=== PATIENT | female | born 1975 | race Hispanic/Latino ===

== ENCOUNTER → 2018-11-11 | Outpatient (CLI) | payer BC | END | disposition home or self-care (01) | LOC: RAH 08:40 | PROVIDERS: ATTEND Otolaryngology Plastic Surgery within the Head & Neck | DX: K21.9 Gastro-esophageal reflux disease without esophagitis (principal) | CPT/HCPCS: 74220 ==

== ENCOUNTER → 2023-06-12 | Outpatient (CLI) | payer BC | END | disposition home or self-care (01) | LOC: SHCH 12:55 | PROVIDERS: ATTEND Internal Medicine Cardiovascular Disease | DX: I42.2 Other hypertrophic cardiomyopathy (principal) | CPT/HCPCS: 93306 ==

== ENCOUNTER 2024-05-15 18:14 | Emergency (ER) | payer BC ==
[~2024-05-15] VITALS: Ht 170.2 cm; Wt 56.2 kg
--- NOTE | 2024-05-15 18:54 | ERN ---
General Chief Complaint: Palpitations Stated Complaint: PALPITATIONS Time Seen by MD: 19:06 Source: patient History of Present Illness Initial Comments PATIENT IS A 49-YEAR-OLD FEMALE COMING IN TO BE EVALUATED FOR PALPITATIONS. PER PATIENT SHE WAS IN THE GYM EXERCISING STARTED HAVING CHEST PRESSURE DECIDED TO COME IN FOR FURTHER EVALUATION. PATIENT STATES HE DOES NOT TAKE ANY FEW WORKUPS AND ALL SHE DRANK WAS GATORADE. Past Medical History Past Medical History: Other Medical History Other: OSTEOPOROSIS Past Surgical History: Hysterectomy ROS Dictation CONSTITUTIONAL: NO CHILLS, NO FEVER, NO WEAKNESS, NO DIAPHORESIS, NO MALAISE. HEAD/FACE: NO SIGNS OF TRAUMA. EENT: NO EYE PAIN, NO BLURRED VISION, NO TEARING, NO DOUBLE VISION, NO EAR PAIN, NO EAR DISCHARGE, NO NOSE PAIN, NO NASAL CONGESTION, NO THROAT PAIN, NO THROAT SWELLING, NO MOUTH PAIN. RESPIRATORY: NO COUGH, NO ORTHOPNEA, NO SOB, NO STRIDOR, NO WHEEZING. CARDIOVASCULAR: NO CHEST PAIN, NO EDEMA, NO PALPITATIONS, NO SYNCOPE. GASTROINTESTINAL/ABDOMINAL: NO ABDOMINAL PAIN, NO CONSTIPATION, NO DIARRHEA, NO NAUSEA, NO VOMITING. GENITOURINARY: NO ABNORMAL DISCHARGE, NO DYSURIA, NO FREQUENT URINATION, NO HEMATURIA. NO COMPLAINTS OF PAIN IN THE GENITALS. MUSCULOSKELETAL: NO BACK PAIN, NO GOUT, NO JOINT PAIN, NO JOINT SWELLING, NO MUSCLE PAIN, NO MUSCLE STIFFNESS, NO NECK PAIN. INTEGUMENTARY: NO CHANGE IN COLOR, NO CHANGE IN HAIR/NAILS, NO DRYNESS, NO LESION, NO LUMPS, NO RASH. NEUROLOGICAL/PSYCH: NO ANXIETY, NOT DEPRESSED, NO EMOTIONAL PROBLEM, NO HEADACHE, NO NUMBNESS, NO PRE-EXISTING DEFICIT, NO HISTORY OF SEIZURES, NO TREMORS, NO WEAKNESS. HEMATOLOGIC/LYMPHATIC: NOT ANEMIC, NO HISTORY OF BLOOD CLOTS, NO APPARENT BLEEDING, NO BRUISING, GLANDS NOT SWOLLEN. ALL SYSTEMS NEGATIVE, EXCEPT NOTED. Physical Exam Physical Exam Dictation VITAL SIGNS: REVIEWED. GENERAL APPEARANCE: ALERT, ORIENTED X3, NO ACUTE DISTRESS, OBESE. HEAD AND FACE: NON-TRAUMATIC. EYES: PERRL, PINK CONJUNCTIVAS, EYELID NO TRAUMA, ANTERIOR CHAMBER CLEAR. EARS: PINNAS INTACT AND NO SIGNS OF TRAUMA OR ERYTHEMA. EAR CANALS CLEAR AND NO DISCHARGE. TMS NO ERYTHEMA. NOSE: NO DISCHARGE, NO BLEEDING. OROPHARYNX: MOUTH NORMAL, TEETH NO CARIES, TONGUE PINK. PHARYNX CLEAR, NO ERYTHEMA. TONSILS NO EXUDATES, NO ABSCESSES NOTED. MUCOUS MEMBRANE MOIST. NECK: SUPPLE, NON-TENDER, NO THYROMEGALY, NO MASSES, NO JVD, NO BRUITS. BREAST: DEFERRED. CHEST: NO TENDERNESS, NO CREPITUS, NO PARADOXICAL MOVEMENT, NO RETRACTIONS. LUNGS: CLEAR, WELL-VENTILATED, SYMMETRIC, NO RALES, NO WHEEZING, NO RHONCHI, NO STRIDOR, GOOD BREATH SOUNDS BILATERALLY. HEART: REGULAR RATE, REGULAR RHYTHM, NO MURMUR, NO GALLOPS. VASCULAR: NO PERIPHERAL EDEMA. ABDOMEN: SOFT, POSITIVE BOWEL SOUNDS, NONDISTENDED, NO GUARDING, NONTENDER, NO REBOUND, NO MASSES NO HEPATOMEGALY, NO SPLENOMEGALY, NO CARSON'S SIGN, NO HERNIAS. RECTAL: DEFERRED. GENITAL: DEFERRED. NEUROLOGICAL: NORMAL SPEECH, GROSS MOTOR FUNCTION INTACT, GROSS SENSORY FUNCTION INTACT. MUSCULOSKELETAL: NECK NONTENDER, FULL RANGE OF MOTION, BACK NONTENDER, FULL RANGE OF MOTION. EXTREMITIES: NONTENDER, FULL RANGE OF MOTION. SKIN: COLOR PINK, DRY, NO TURGOR, NO RASH, NO LACERATIONS, NO ABRASIONS, NO CONTUSIONS. LYMPHATICS: DEFERRED. Results Laboratory and Microbiology Lab and Micro Result Laboratory Tests Test 05/15/24 19:52 White Blood Count 8.7 K/uL (4.8-10.8) Red Blood Count 3.88 MIL/uL (4.00-5.50) L Hemoglobin 12.6 g/dL (12.0-16.0) Hematocrit 37.8 % (36-48) Mean Corpuscular Volume 97.4 fL (79-99) Mean Corpuscular Hemoglobin 32.5 pg (27.0-33.0) Mean Corpuscular Hemoglobin Concent 33.3 g/dL (32.0-36.0) Red Cell Distribution Width 13.3 % (11.0-15.5) Platelet Count 232 K/uL (130-400) Mean Platelet Volume 12.0 fL (7.5-10.5) H Immature Granulocyte % (Auto) 0.2 % (0-1) Neutrophils (%) (Auto) 77.1 % (40.0-77.0) H Lymphocytes (%) (Auto) 16.4 % (21.0-51.0) L Monocytes (%) (Auto) 5.7 % (3.0-13.0) Eosinophils (%) (Auto) 0.1 % (0.0-8.0) Basophils (%) (Auto) 0.5 % (0.0-5.0) Neutrophils # (Auto) 6.7 K/uL (1.8-7.7) Lymphocytes # (Auto) 1.4 K/uL (1.0-4.8) Monocytes # (Auto) 0.5 K/uL (0.1-1.0) Eosinophils # (Auto) 0.01 K/uL (0.00-0.70) Basophils # (Auto) 0.04 K/uL (0.00-0.20) Absolute Immature Granulocyte (auto 0.02 K/uL (0-1) Nucleated Red Blood Cells 0.0 % (0.0-0.19) Prothrombin Time 11.0 SEC (9.6-11.6) Prothromb Time International Ratio 0.98 (0.85-1.15) Activated Partial Thromboplast Time 29.5 SEC (26.3-35.5) Sodium Level 141 mmol/L (136-145) Potassium Level 3.7 mmol/L (3.5-5.1) Chloride Level 102 mmol/L (101-111) Carbon Dioxide Level 31 mmol/L (21-32) Blood Urea Nitrogen 17 mg/dL (7-18) Creatinine 0.7 mg/dL (0.5-1.0) Glomerular Filtration Rate Calc 107 mL/min (>90) Random Glucose 103 mg/dL (70-105) Total Calcium 9.8 mg/dL (8.5-10.1) Magnesium Level 1.90 mg/dL (1.80-2.40) Total Creatine Kinase 89 U/L (21-232) Troponin I High Sensitivity 19 ng/L (4-50) Labs Reviewed?: Yes EKG/XRAY/US/CT/MRI EKG Comment 05/15/2024 TIME 6:30 P.M. VENTRICULAR RATE [address] WAVE ELEVATION OR DEPRESSION MDM MDM: DIFFERENTIAL DIAGNOSIS: RATIONALE: TESTS CONSIDERED AND ORDERED SECONDARY TO SHARED DECISION MAKING INCLUDE: PREVIOUS OUTSIDE RECORDS REVIEWED: OLD ER VISITS. RISK OF COMPLICATION AND/OR MORBIDITY OR MORTALITY OF PATIENT MANAGEMENT: NONE MEDICATIONS-PER MEDICATION RECONCILIATION NEED FOR HOSPITALIZATION: PATIENT DOES NOT MEET CRITERIA FOR HOSPITALIZATION. NEED FOR EMERGENCY MAJOR/MINOR SURGERY: NO THERE ARE NO SOCIAL CONCERNS WITH THIS PATIENT. PRESCRIPTION DRUG MANAGEMENT PRESCRIPTIONS WILL INCLUDE SYMPTOMATIC CARE PATIENT'S PRIOR EXTERNAL MEDICAL RECORDS FROM OTHER ER VISITS WERE REVIEWED BY ME INDICATED. PRIOR TESTING AND RESULTS FROM PREVIOUS VISITS WERE REVIEWED. PRIOR TESTS WERE TAKEN INTO ACCOUNT WITH MEDICAL DECISION MAKING AND RESOURCE UTILIZATION, INDEPENDENT HISTORIAN/HISTORIANS WERE USED TO OBTAIN COMPLETE MEDICAL HISTORY. I INDEPENDENTLY INTERPRETED THE TEST THAT WERE PERFORMED, RESULTS WERE REVIEWED BY ME AND CONSIDERED FINDINGS ON RADIOLOGY IF ORDERED. MEDICAL MANAGEMENT AND EXAMINATION INTERPRETATION DISCUSSIONS WERE HAD BY ME WITH OTHER QUALIFIED HEALTHCARE PROFESSIONALS INDICATED FOR THE PATIENT'S CARE. ED Course Orders Procedure Category Date Status Time Cbc With Differential LAB 05/15/24 In Process 18:39 Prothrombin Time With LAB 05/15/24 Complete INR 18:39 B-Type Natriuretic LAB 05/15/24 In Process Peptide 18:39 Chest 1vw RAD 05/15/24 Resulted 18:39 12 Lead Ekg Tracing- EKG 05/15/24 Logged Technical 18:39 Magnesium LAB 05/15/24 Complete 18:39 Creatine Kinase, Total LAB 05/15/24 Complete 18:39 Troponin I High LAB 05/15/24 Complete Sensitivity 18:39 Urinalysis Profile LAB 05/15/24 In Process 18:39 Partial LAB 05/15/24 Complete Thromboplastin Time 18:39 Basic Metabolic Panel LAB 05/15/24 Complete 18:39 Vital Signs Date Time Temp Pulse Resp B/P (MAP) Pulse Ox O2 Delivery O2 Flow Rate FiO2 05/15/24 18:33 97.9 77 20 131/71 99 Room Air 0 7:00 p.m. patient was signed out to me by a.m. physician. Ms. Espinoza is a 49-year-old pleasant female who came into the ER complaining of palpitations and dizziness after 1 hour of workout. Apparently she did not do any pre workout or take supplements. She had a similar presentation in the past where an echocardiogram was done which was negative she has not been working out for awhile and just started the exercise back. She denied any syncope chest pain. Palpitations resolved after she came to the ER No history of any known thyroid problem. Temperature 97.8 pulse 77 respirations 20 blood pressure 131/71 pulse oximetry 98% on room air Labs reviewed CBC BNP 7 with a normal limits troponins negative 12 lead EKG showed normal sinus rhythm. Chest x-ray no acute infiltrate noted. Patient had an echocardiogram done on 06/12/2023 which showed a normal EF I had a long discussion with the patient at bedside her son was also present. I updated her on all the lab work so far and possibly palpitations could be from a combination of mild dehydration, deconditioning as well as perimenopausal sympto ms. She verbalized full understanding and she will get thyroid workup done at her PCP. DX & DISP Disposition: Discharge Departure Impression: Primary Impression: Palpitations Additional Impression: Vasovagal symptom Condition: Stable Additional Instructions: Patient and the caregiver have been informed of all the diagnostic tests and the imaging conducted during the today's visit to the emergency room and has verbalized understanding of the results I have personally reviewed and interpreted all diagnostic exams performed here in the ER today as well as the vital signs documented by the nursing staff. The patient is now being discharged to home and should follow up with the primary care physician or the specialist as directed by the ER staff. Follow-up with primary care provider in 1 to 2 days. Take medications as dire cted here in the emergency room. Okay to continue home medications unless otherwise discussed during your visit in the emergency room today. Return to your nearest emergency room if symptoms worsen or if there is no improvement. Call 911 if you need immediate assistance. Take Tylenol or Motrin [id number] as needed and if no contraindications are present. Increase oral hydration. A wound culture or urine culture was ordered here in the emergency room department please follow-up with primary care provider and advise them to get repeat ports from our facility. If you had any Teodoro wrap/splints that were applied here, please do not remove them until you see your primary care or specialty. Referrals: MAUEREN MAYFIELD MD (PCP) UBALDO CLARK MD May 15, 2024 18:54 CHAZ NEUMANN MD May 15, 2024 20:25
[2024-05-15 19:58] LABS: BASOPHILS # (AUTO) 0.04 K/uL (0.00-0.20); BASOPHILS % (AUTO) 0.5 % (0.0-5.0); EOSINOPHILS # (AUTO) 0.01 K/uL (0.00-0.70); EOSINOPHILS % (AUTO) 0.1 % (0.0-8.0); HEMATOCRIT 37.8 % (36-48); IMMATURE GRANULOCYTE ABSOLUTE 0.02 K/uL (0-1); LYMPHOCYTES # (AUTO) 1.4 K/uL (1.0-4.8); LYMPHOCYTES % (AUTO) 16.4 % (21.0-51.0); MEAN CORPUSCULAR HEMOGLOBIN 32.5 pg (27.0-33.0); MEAN CORPUSCULAR HGB CONC 33.3 g/dL (32.0-36.0); MEAN CORPUSCULAR VOLUME 97.4 fL (79-99); MONOCYTES # (AUTO) 0.5 K/uL (0.1-1.0); MONOCYTES % (AUTO) 5.7 % (3.0-13.0); NEUTROPHILS # (AUTO) 6.7 K/uL (1.8-7.7); NEUTROPHILS % (AUTO) 77.1 % (40.0-77.0); PLATELET COUNT (AUTO) 232 K/uL (130-400); RED BLOOD CELL COUNT(AUTO) 3.88 MIL/uL (4.00-5.50); RED CELL DISTRIBUTION WIDTH 13.3 % (11.0-15.5); WHITE BLOOD COUNT (AUTO) 8.7 K/uL (4.8-10.8)
--- NOTE | 2024-05-15 19:59 | HMCIMG ---
CHEST 1VW HISTORY: Chest pain COMPARISON: None FINDINGS: A frontal projection of the chest was obtained. No acute pulmonary infiltrates is seen. The heart is normal in size. Prominent interstitial markings are seen. Degenerative changes are seen. No evidence of aortic calcification is seen. IMPRESSION: 1. No acute pulmonary infiltrate is seen.
[2024-05-15 20:05] LABS: CREATININE 0.7 mg/dL (0.5-1.0); POTASSIUM 3.7 mmol/L (3.5-5.1)
[2024-05-15 20:09] LABS: INR 0.98 (0.85-1.15)
[2024-05-15 20:10] LABS: MAGNESIUM 1.9 mg/dL (1.80-2.40); PARTIAL THROMBOPLASTIN TIME 29.5 SEC (26.3-35.5)
[2024-05-15 20:33] LABS: B-TYPE NATRIURETIC PEPTIDE 12 pg/mL (0-100)
[2024-05-15 20:34] LABS: BILIRUBIN,URINE NEGATIVE (NEGATIVE); COLOR,URINE COLORLESS (YELLOW); GLUCOSE, URINE (UA) NEGATIVE (NEGATIVE); KETONES,URINE NEGATIVE (NEGATIVE); LEUKOCYTE ESTERASE ,URINE NEGATIVE Leu/uL (NEGATIVE); NITRATE,URINE NEGATIVE (NEGATIVE); OCCULT BLOOD,URINE NEGATIVE (NEGATIVE); PH,URINE 6.5 (5.0-8.0); PROTEIN,URINE NEGATIVE (NEGATIVE); UROBILINOGEN,URINE 0.2 mg/dL (0.2-1.0)
[2024-05-15 20:36] LABS: APPEARANCE,URINE CLEAR (CLEAR)
[2024-05-15 20:37] VITALS: BP 108/48; PULSE 78; RESP 18; TEMP 97.9; O2SAT 99
[2024-05-15 20:37] LABS: ADD UA MICROSCOPIC NO
--- NOTE | 2024-05-16 06:03 | EKG ---
[facility] Test Date: 2024-05-15 Test Time: 18:30:38 Pat Name: AAYUSH JORDAN Department: [facility] Room: Gender: F Named Account Executive: [id number] : 1975 Requested By: UBALDO CLARK Order Number: [id number] Reading MD: Belgica Lewis Measurements Intervals Leola Rate: 78 P: 78 OH: 149 QRS: 41 QRSD: 91 T: 39 QT: 378 QTc: 431 Interpretive Statements Sinus rhythm No previous ECG available for comparison Electronically Signed On 05-17-2024 17:07:22 CERTIFIED PHLEBOTOMIST by Belgica Lewis Please click the below link to view image of tracing.
== END 2024-05-15 20:41 | disposition home or self-care (01) ==
LOC: EDH 18:14
DX: R00.2 Palpitations (principal); R55 Syncope and collapse; Z90.710 Acquired absence of both cervix and uterus
CPT/HCPCS: 36415; 71045; 80048; 81003; 82550; 83735; 83880; 84484; 85025; 85610; 85730; 93005; 99284